=== PATIENT | male | born 1940 | race African-American/Black ===

== ENCOUNTER 2020-05-03 10:10 | Inpatient (IN) ==
[2020-05-03] MEDS ORDERED: INFLUENZA VIRUS VACCINE 0.5 ML SYRINGE IM ONE (13:19)
[2020-05-03] MEDS ORDERED: GLUCAGON 1 MG VIAL IM PRN (16:11)
[2020-05-03] MEDS ORDERED: ACETAMINOPHEN 325 MG TABLET PO PRN (16:11)
[2020-05-03] MEDS ORDERED: DEXTROSE 50% 25 GM/50 ML VIAL IV PRN (16:11)
[2020-05-03] MEDS ORDERED: hydrALAZINE 20 MG/1 ML VIAL IV PRN (16:11)
[2020-05-03] MEDS: INSULIN LISPRO 100 UNIT/ML SUBCUT SCH ×2 (17:37→20:21)
[2020-05-03] MEDS: ONDANSETRON 4 MG/2 ML VIAL IV PRN (17:53)
[2020-05-03] MEDS: MORPHINE 4 MG/1 ML VIAL IV PRN (17:54)
[2020-05-03] MEDS: SODIUM CHLORIDE 0.9% 1,000 ML IV SCH (18:11)
[2020-05-03] MEDS: PANTOPRAZOLE 40 MG TABLET PO SCH (20:20)
[2020-05-03] MEDS: MAGNESIUM CHLORIDE 64 MG TABLET PO SCH (20:20)
[2020-05-03] MEDS: ENOXAPARIN 40 MG/0.4 ML SYRINGE SUBCUT SCH (20:21)
[2020-05-04] MEDS: SODIUM CHLORIDE 0.9% 1,000 ML IV SCH ×3 (02:03→19:38)
[2020-05-04] MEDS: MORPHINE 4 MG/1 ML VIAL IV PRN (05:24)
[2020-05-04] MEDS: ONDANSETRON 4 MG/2 ML VIAL IV PRN (05:26)
[2020-05-04 07:14] LABS: Basophils % 0.2 % (0.0-0.8); Hematocrit 28.1 VOL% (42.0-52.0); Hemoglobin 9.4 GM/DL (14.0-18.0); Immature Granulocytes % 0.5 %; Lymphocytes # 1.3 10*3/uL (1.4-4.0); Mean Corpuscular HGB Conc 33.5 GM/DL (32-36); Mean Corpuscular Volume 94.6 FL (87-102); Mean Platelet Volume 13.7 FL (9.6-12.0); Monocytes % 9.4 % (1.7-12.7); Neutrophils % 82.9 % (38.7-73.9); Platelet Count 114 T/CUMM (130-400); Red Blood Count 2.97 MC/CUMM (3.8-5.5); Red Cell Distribution Width 14.5 % (9.3-17.3); White Blood Count 19.2 T/CUMM (4-12)
[2020-05-04 07:36] LABS: Band Neutrophils 7 % (0-10); Lymphocytes 4 % (20-55); Microcytosis Slight; Polychromasia Slight; Segmented Neutrophils 74 % (50-85); Total Cells Counted 100
[2020-05-04 07:37] LABS: Ovalocytes Slight; Platelet Estimate Decreased
[2020-05-04 07:44] LABS: Calcium 6.6 MG/DL (8.5-10.1); Osmolality,Calculated 298.3 MOS/KG (273-304); Thyroid Stimulating Hormone 0.337 uIU/ml (0.358-3.74)
[2020-05-04] MEDS: INSULIN LISPRO 100 UNIT/ML SUBCUT SCH ×4 (07:52→21:28)
[2020-05-04] MEDS ORDERED: ROPIVACAINE 0.5% 30 ML VIAL ONE (10:15)
[2020-05-04] MEDS ORDERED: DEXAMETHASONE 4 MG/1 ML VIAL ONE (10:15)
[2020-05-04] MEDS ORDERED: ceFAZolin 1,000 MG VIAL ONE (12:16)
[2020-05-04] MEDS ORDERED: propofoL 200 MG/20 ML VIAL IV ONE (13:42)
[2020-05-04] MEDS ORDERED: SEVOFLURANE 1 UNIT/15 MINUTE INH ONE (13:42)
[2020-05-04] MEDS ORDERED: LIDOCAINE 2% 5 ML VIAL ONE (13:42)
[2020-05-04] MEDS ORDERED: fentaNYL 100 MCG/2 ML VIAL ONE (13:43)
[2020-05-04] MEDS ORDERED: ETOMIDATE 40 MG/20 ML VIAL IV ONE (13:43)
[2020-05-04] MEDS ORDERED: SODIUM CHLORIDE 0.9% 1,000 ML IV ONE (13:43)
[2020-05-04] MEDS ORDERED: SUCCINYLCHOLINE 200 MG/10 ML VIAL ONE (13:43)
[2020-05-04] MEDS ORDERED: PHENYLEPHRINE 10 MG/1 ML VIAL IV ONE (13:43)
[2020-05-04] MEDS ORDERED: ROCURONIUM 100 MG/10 ML VIAL IV ONE (13:43)
[2020-05-04] MEDS ORDERED: ONDANSETRON 4 MG/2 ML VIAL ONE (13:43)
[2020-05-04] MEDS ORDERED: MEPERIDINE 25 MG/1 ML VIAL IV PRN (13:53)
[2020-05-04] MEDS: amLODIPine 5 MG TABLET PO SCH (19:29)
[2020-05-04] MEDS: TAMSULOSIN 0.4 MG CAPSULE PO SCH (19:29)
[2020-05-04] MEDS: MAGNESIUM CHLORIDE 64 MG TABLET PO SCH ×2 (19:29→21:22)
[2020-05-04] MEDS: PANTOPRAZOLE 40 MG TABLET PO SCH (19:29)
[2020-05-04] MEDS: ceFAZolin 1,000 MG in SYRINGE 1 EACH IV SCH (19:32)
[2020-05-04] MEDS: ENOXAPARIN 40 MG/0.4 ML SYRINGE SUBCUT SCH (21:22)
[2020-05-05] MEDS: SODIUM CHLORIDE 0.9% 1,000 ML IV SCH ×3 (03:41→22:45)
[2020-05-05] MEDS: ceFAZolin 1,000 MG in SYRINGE 1 EACH IV SCH (04:51)
[2020-05-05 06:13] LABS: Basophils % 0.1 % (0.0-0.8); Hematocrit 23.3 VOL% (42.0-52.0); Immature Granulocytes % 0.4 %; Immature Granulocytes Absolute 0.06 #; Lymphocytes # 0.8 10*3/uL (1.4-4.0); Lymphocytes % 5.4 % (21.2-54.2); Mean Corpuscular HGB Conc 32.6 GM/DL (32-36); Mean Corpuscular Volume 95.9 FL (87-102); Mean Platelet Volume 13.6 FL (9.6-12.0); Monocytes % 9.5 % (1.7-12.7); Neutrophils % 84.6 % (38.7-73.9); Platelet Count 119 T/CUMM (130-400); Red Blood Count 2.43 MC/CUMM (3.8-5.5); Red Cell Distribution Width 14.8 % (9.3-17.3); White Blood Count 15.2 T/CUMM (4-12)
[2020-05-05 06:30] LABS: Calcium 7.7 MG/DL (8.5-10.1); Osmolality,Calculated 300.8 MOS/KG (273-304)
[2020-05-05 06:40] LABS: Hemoglobin 7.6 GM/DL (14.0-18.0)
[2020-05-05 06:42] LABS: Band Neutrophils 17 % (0-10); Lymphocytes 5 % (20-55); Segmented Neutrophils 64 % (50-85); Total Cells Counted 100
[2020-05-05 06:43] LABS: Hypochromasia 1+; Microcytosis 1+
[2020-05-05 06:44] LABS: Ovalocytes Slight; Platelet Estimate Decreased
[2020-05-05] MEDS: INSULIN LISPRO 100 UNIT/ML SUBCUT SCH ×4 (09:18→21:33)
[2020-05-05] MEDS: PANTOPRAZOLE 40 MG TABLET PO SCH (10:16)
[2020-05-05] MEDS: MAGNESIUM CHLORIDE 64 MG TABLET PO SCH ×2 (10:16→21:33)
[2020-05-05] MEDS: amLODIPine 5 MG TABLET PO SCH (10:20)
[2020-05-05] MEDS: TAMSULOSIN 0.4 MG CAPSULE PO SCH (10:45)
[2020-05-05] MEDS: ENOXAPARIN 40 MG/0.4 ML SYRINGE SUBCUT SCH (21:33)
[2020-05-06 07:03] LABS: Basophils % 0.1 % (0.0-0.8); Eosinophils % 0.2 % (0.00-10.9); Hematocrit 22.7 VOL% (42.0-52.0); Hemoglobin 7.4 GM/DL (14.0-18.0); Immature Granulocytes Absolute 0.13 #; Lymphocytes # 1.2 10*3/uL (1.4-4.0); Mean Corpuscular HGB Conc 32.6 GM/DL (32-36); Mean Platelet Volume 13.5 FL (9.6-12.0); NRBC # 0.02 10*3/uL; Neutrophils % 80.7 % (38.7-73.9); Platelet Count 148 T/CUMM (130-400); Red Blood Count 2.34 MC/CUMM (3.8-5.5); Red Cell Distribution Width 15.2 % (9.3-17.3); White Blood Count 13.5 T/CUMM (4-12)
[2020-05-06 07:19] LABS: Osmolality,Calculated 304.3 MOS/KG (273-304)
[2020-05-06 07:28] LABS: Band Neutrophils 2 % (0-10); Eosinophils 1 % (0-10); Lymphocytes 12 % (20-55); Platelet Estimate Adequate; Segmented Neutrophils 76 % (50-85); Total Cells Counted 100
[2020-05-06 07:29] LABS: Hypochromasia 2+; Microcytosis Slight; Ovalocytes Slight
[2020-05-06] MEDS: INSULIN LISPRO 100 UNIT/ML SUBCUT SCH ×4 (07:53→21:05)
[2020-05-06] MEDS ORDERED: SODIUM CHLORIDE 0.9% 1,000 ML IV PRN (09:20)
[2020-05-06] MEDS: MAGNESIUM CHLORIDE 64 MG TABLET PO SCH ×2 (09:41→21:04)
[2020-05-06] MEDS: TAMSULOSIN 0.4 MG CAPSULE PO SCH (09:41)
[2020-05-06] MEDS: PANTOPRAZOLE 40 MG TABLET PO SCH (09:41)
[2020-05-06] MEDS: amLODIPine 5 MG TABLET PO SCH (09:42)
[2020-05-06] MEDS ORDERED: FUROSEMIDE 40 MG/4 ML VIAL IV ONE (16:00)
[2020-05-06] MEDS: ENOXAPARIN 40 MG/0.4 ML SYRINGE SUBCUT SCH (21:04)
[2020-05-07 05:20] LABS: Basophils # 0.1 10*3/uL (0.0-0.2); Basophils % 0.4 % (0.0-0.8); Eosinophils # 0.1 10*3/uL (0.0-0.87); Eosinophils % 0.6 % (0.00-10.9); Hematocrit 28.7 VOL% (42.0-52.0); Hemoglobin 9.7 GM/DL (14.0-18.0); Immature Granulocytes Absolute 0.32 #; Lymphocytes # 1.5 10*3/uL (1.4-4.0); Lymphocytes % 9.2 % (21.2-54.2); Mean Corpuscular HGB Conc 33.8 GM/DL (32-36); Mean Corpuscular Volume 87.8 FL (87-102); Monocytes % 9.1 % (1.7-12.7); NRBC # 0.07 10*3/uL; Neutrophils % 78.7 % (38.7-73.9); Platelet Count 160 T/CUMM (130-400); Red Blood Count 3.27 MC/CUMM (3.8-5.5); Red Cell Distribution Width 15.9 % (9.3-17.3); White Blood Count 16.2 T/CUMM (4-12)
[2020-05-07 05:23] LABS: Hematocrit 28.6 VOL% (42.0-52.0); Hemoglobin 9.8 GM/DL (14.0-18.0)
[2020-05-07 05:41] LABS: Eosinophils 2 % (0-10); Hypochromasia 1+; Lymphocytes 7 % (20-55); Platelet Estimate Adequate; Segmented Neutrophils 82 % (50-85); Total Cells Counted 100
[2020-05-07 05:42] LABS: Microcytosis Slight
[2020-05-07] MEDS: TAMSULOSIN 0.4 MG CAPSULE PO SCH (09:30)
[2020-05-07] MEDS: amLODIPine 5 MG TABLET PO SCH (09:30)
[2020-05-07] MEDS: MAGNESIUM CHLORIDE 64 MG TABLET PO SCH (09:30)
[2020-05-07] MEDS: PANTOPRAZOLE 40 MG TABLET PO SCH (09:30)
[2020-05-07] MEDS: INSULIN LISPRO 100 UNIT/ML SUBCUT SCH ×2 (10:29→12:13)
[2020-05-07 11:23] VITALS: BP 136/69
== END 2020-05-07 14:20 | DRG 481 ==
LOC: N.3E 12:39 → SUATTDRO 12:39
PROVIDERS: ADMIT Internal Medicine; ATTEND Internal Medicine